=== PATIENT | male | born 1995 | race Caucasian/White ===

== ENCOUNTER 2025-06-21 02:51 | Emergency (ER) | payer BC ==
[~2025-06-21] VITALS: Ht 182.9 cm; Wt 107.5 kg
[2025-06-21 03:47] LABS: BASO # 0.1 10^3/uL (0.0-0.2); BASO % 0.8 % (0.0-1.0); EOS # 0.1 10^3/uL (0.0-0.5); EOS % 0.6 % (0.0-3.0); LYMPH # 1.4 10^3/uL (1.5-5.0); LYMPH % 14.2 % (24.0-44.0); MONO # 1.0 10^3/uL (0.0-0.8); MONO % 10.6 % (2.0-8.0); NEUTROPHILS # 7.2 10^3/uL (1.5-8.5); NEUTROPHILS % 73.6 % (36.0-66.0); PLATELET COUNT, AUTOMATED 267 10^3/uL (150-450)
[2025-06-21] MEDS ORDERED: ISOVUE-370 76% 100 ML VIAL As Ordered ONE (03:51)
[2025-06-21] MEDS: metroNIDAZOLE 500 MG in IV 1 EA IV ONE (05:25)
[2025-06-21] MEDS: LevoFLOXacin IV 750 MG in IV 1 EA IV ONE (06:48)
[2025-06-21] MEDS ORDERED: METR-265 PO (06:49)
[2025-06-21] MEDS ORDERED: DEXA6TAB PO (06:49)
[2025-06-21 08:28] VITALS: BP 119/59; TEMP 97.6; O2SAT 96
== END 2025-06-21 08:29 | disposition home or self-care (01) ==
LOC: M ED 02:51
DX: K04.7 Periapical abscess without sinus (principal); L03.211 Cellulitis of face; Z88.1 Allergy status to other antibiotic agents; Z91.013 Allergy to seafood; Z79.899 Other long term (current) drug therapy
CPT/HCPCS: 70487; 80047; 85025; 86140; 96365; 96366; 96375; 99284; J1100; J1836; J1956; Q9967